=== PATIENT | female | born 1950 | race Caucasian/White ===

== ENCOUNTER → 2016-12-20 | Outpatient (CLI) | payer MEDICARE, MEDICAID ==
--- NOTE | 2016-12-20 17:26 | RADIOLOGY REPORT PS360 ---
MRA-HEAD W/O CLINICAL INDICATION: Mental status change, confusion, altered level of consciousness MS ORDERING PHYSICIAN: Chino Hogan MD PATIENT AGE: 66 years COMPARISON: MRI of the same day FINDINGS: No aneurysm or arteriovenous malformation is evident. There is persistent origin of the small right posterior cerebral artery. No other anomalies are evident. IMPRESSION: 1. No aneurysm or AVM. 2. Small right posterior vertebral artery with persistent origin as a normal variant
--- NOTE | 2016-12-20 17:26 | RADIOLOGY REPORT PS360 ---
MRA-HEAD W/O CLINICAL INDICATION: Mental status change, confusion, altered level of consciousness MS ORDERING PHYSICIAN: Chino oHgan MD PATIENT AGE: 66 years COMPARISON: MRI of the same day FINDINGS: No aneurysm or arteriovenous malformation is evident. There is persistent origin of the small right posterior cerebral artery. No other anomalies are evident. IMPRESSION: 1. No aneurysm or AVM. 2. Small right posterior vertebral artery with persistent origin as a normal variant
--- NOTE | 2016-12-20 17:31 | RADIOLOGY REPORT PS360 ---
MRI-BRAIN W/WO HISTORY: Mental status change, altered level of consciousness, confusion MS ORDERING PHYSICIAN: Chino Hogan MD PATIENT AGE: 66 years COMPARISON: 11/15/2016 TECHNIQUE: Standard multiplanar multiecho sequences are performed without and with contrast. FINDINGS: No midline shift, mass effect, intracranial hemorrhage, or hydrocephalus. No evidence of acute infarction. No enhancing lesions are evident. There is diffuse generalized atrophy. Nonspecific periventricular and subcortical T2 white matter hyperintensities are present as before consistent with ischemic gliotic change from microvascular disease. No restricted diffusion. The cerebellopontine angles, cerebellum, and brainstem are unremarkable. The hippocampal structures are unremarkable. The temporal horns are symmetric. The pituitary and optic chiasm are unremarkable. No mastoid effusion or sinus air-fluid level. IMPRESSION: 1. No change from with no acute finding. 2. Atrophy with chronic ischemic changes.
== END ==
LOC: RAD 12:48
DX: G35 Multiple sclerosis (principal); G81.94 Hemiplegia, unspecified affecting left nondominant side; R41.3 Other amnesia

== ENCOUNTER → 2016-12-26 | Outpatient (CLI) | payer MEDICARE, MEDICAID ==
[~2016-12-26] MED LIST: ALBUTEROL2.5 MG/NEB IN; AMITRIPTYLINE 225 MG PO; AMLODIPINE10 M2 PO; ARICEPT10 MG PO; ASPIRIN 81MG TA81 MG PO; ASPIRIN ADULT L81 M2 PO; ASPIRIN E.C.81 MG PO; AVAPRO 150MG T150 MG PO; B12 INJ.,1000 MCG/M IM; BACLOFEN 10MG T10 MG PO; BACLOFEN10 MG PO; BUPROPION HCL100 MG PO; CALCIUM 600 PLU1 TAB PO; CELEXA20 MG PO; CITALOPRAM20 MG PO; CLONIDINE 0.1M0.1 MG PO; CLONIDINE0.1 M1 PO; CYCLOBENZAPRINE10 MG PO; DONEPEZIL 10MG10 MG PO; DULCOLAX 5MG TAB5 MG PO; IRBESARTAN PO; LASIX20 MG PO; LEVAQUIN500 MG PO; LORTAB 7.5/3251 TAB PO; LOVASTATIN40 MG PO; MECLIZINE25 MG PO; MELOXICAM15 MG PO; MEVACOR40 MG PO; MULTI VITAMINS1 TA1 PO; Meclizine25 MG PO; NEXIUM40 MG PO; POTASSIUM CHLO10 ME3 PO; QUETIAPINE FUM100 MG PO; ROCEPHIN 1 GM AD1 GM IV; SEROQUEL 100MG100 MG PO; SEROQUEL200 MG PO; VITAMIN B-121000 MCG IM; VITAMIN D1000 IU PO
--- NOTE | 2016-12-26 13:27 | CARDIOVASCULAR REPORT ---
"Cerebrovascular Exam IMPRESSIONS 1. The bilateral vertebral arteries are patent with normal antegrade flow. 2. Study suggests less than 20% stenosis involving the right internal carotid artery and the left internal carotid artery. No change from the study of 11-Apr-2006. History: Memory loss. Risk factors: Hypertension. Diabetes mellitus. Hyperlipidemia. MS,Dementia Carotid duplex study. Complete study and Doppler flow study including spectral analysis, color and alcantara scale imaging. Tables: Arterial flow: + +--------+--------+ |Location |V sys |V ed | + +--------+--------+ |Right CCA - proximal|73.1cm/s|14.9cm/s| + +--------+--------+ |Right CCA - distal |62.9cm/s|14.9cm/s| + +--------+--------+ |Right ECA |70.7cm/s|--------| + +--------+--------+ |Right ICA - proximal|-30cm/s |9.3cm/s | + +--------+--------+ |Right ICA - mid |57.5cm/s|19.6cm/s| + +--------+--------+ |Right ICA - distal |70.2cm/s|24.6cm/s| + +--------+--------+ |Right vertebral |44.8cm/s|--------| + +--------+--------+ |Left CCA - proximal |73.1cm/s|13.4cm/s| + +--------+--------+ |Left CCA - distal |66.8cm/s|18.1cm/s| + +--------+--------+ |Left ECA |69.1cm/s|--------| + +--------+--------+ |Left ICA - proximal |44.1cm/s|13.8cm/s| + +--------+--------+ |Left ICA - mid |55.1cm/s|21cm/s | + +--------+--------+ |Left ICA - distal |47.4cm/s|16.5cm/s| + +--------+--------+ |Left vertebral |25.3cm/s|--------| + +--------+--------+ Velocity ratios: + + + + + + | |Right, V sys|Right, V ed|Left, V sys|Left, V ed| + + + + + + |Max ICA/dist CCA|1.12 |1.65 |0.82 |1.16 | + + + + + + (Report amended ) Electronically signed by: Durga oHlcomb [id number]"
== END ==
LOC: RT 12:27
DX: G35 Multiple sclerosis (principal); G81.94 Hemiplegia, unspecified affecting left nondominant side; R41.3 Other amnesia